=== PATIENT | female | born 2000 | race Caucasian/White ===

== ENCOUNTER 2019-10-06 20:20 | Emergency (ER) | payer OTHER ==
[2019-10-06] MEDS ORDERED: RABIES IMMUNE GLOBULIN INJ/PF 300 UNIT/ML VIAL IM ONE ×2 (20:58→21:06)
[2019-10-06] MEDS ORDERED: DIPH/PERTUSS(ACELL)/TETANUS VAC/PF 0.5 ML SYR (>=10YO) IM ONE (20:58)
[2019-10-06] MEDS ORDERED: RABIES VACCINE (PCEC)/PF 2.5 UNIT/1 ML KIT IM ONE (20:58)
--- NOTE | 2019-10-06 21:07 | ER Document Report ---
HPI - HPI Time Seen by Provider: 10/06/19 20:44 Notes: 19 yr old female presents to ER for evaluation of a stray cat bitting her right lower extremity earlier this afternoon. Pt states she is unsure of her last tetanus. pt is unsure if the cat had rabies. bleeding is controlled. pt is currently on ciprofloxacin for an inner ear infection from her PCP. denies any n/t to ble. no otc meds have librado tried. pt states she has seen the cat multiple times, but the cat has never attacked her before. denies any cp, sob, n/v/d. I have greeted and performed a rapid initial assessment of this patient. A comprehensive ED assessment and evaluation of the patient, analysis of test results and completion of the medical decision making process will be conducted by additional ED providers. PHYSICAL EXAMINATION: GENERAL: Well-appearing, well-nourished and in no acute distress. HEAD: Atraumatic, normocephalic. EYES: Pupils equal round extraocular movements intact, conjunctiva are normal. NECK: Normal range of motion CV: s1, s2 regular LUNGS: No respiratory distress Musculoskeletal: Normal range of motion NEUROLOGICAL: Normal speech, normal gait. SKIN: Warm, Dry, normal turgor, no rashes or lesions noted. multiple abrasions to right lower extremity on anterior aspect. no puncture wounds. bleeding is controlled. Course - Vital Signs Vital signs: Temp Pulse Resp BP Pulse Ox 98.5 F 96 20 127/68 H 100 10/06/19 20:10/06/19 20:29 10/06/19 20:29 10/06/19 20:10/06/19 20:29
--- NOTE | 2019-10-06 21:29 | ER Document Report ---
ED Medical Screen (RME) - General Chief Complaint: Cat Bite Stated Complaint: CAT BITE Time Seen by Provider: 10/06/19 20:44 Notes: 19 yr old female presents to ER for evaluation of a stray cat bitting her right lower extremity earlier this afternoon. Pt states she is unsure of her last tetanus. pt is unsure if the cat had rabies. bleeding is controlled. pt is currently on ciprofloxacin for an inner ear infection from her PCP. denies any n/t to ble. no otc meds have librado tried. pt states she has seen the cat multiple times, but the cat has never attacked her before. denies any cp, sob, n/v/d. I have greeted and performed a rapid initial assessment of this patient. A comprehensive ED assessment and evaluation of the patient, analysis of test results and completion of the medical decision making process will be conducted by additional ED providers. PHYSICAL EXAMINATION: GENERAL: Well-appearing, well-nourished and in no acute distress. HEAD: Atraumatic, normocephalic. EYES: Pupils equal round extraocular movements intact, conjunctiva are normal. NECK: Normal range of motion CV: s1, s2 regular LUNGS: No respiratory distress Musculoskeletal: Normal range of motion NEUROLOGICAL: Normal speech, normal gait. SKIN: Warm, Dry, normal turgor, no rashes or lesions noted. multiple abrasions to right lower extremity on anterior aspect. no puncture wounds. bleeding is controlled. - Related Data Allergies/Adverse Reactions: No Known Allergies Allergy (Unverified 10/06/19 20:53) Past Medical History - Social History Frequency of alcohol use: Occasional Drug Abuse: None Physical Exam - Vital signs Vitals: Temp Pulse Resp BP Pulse Ox 98.5 F 96 20 127/68 H 100 10/06/19 20:10/06/19 20:10/06/19 20:10/06/19 20:10/06/19 20:29 Course - Vital Signs Vital signs: Temp Pulse Resp BP Pulse Ox 98.5 F 96 20 127/68 H 100 10/06/19 20:10/06/19 20:10/06/19 20:10/06/19 20:10/06/19 20:29
--- NOTE | 2019-10-06 22:46 | ER Document Report ---
HPI - HPI Time Seen by Provider: 10/06/19 20:44 Pain Level: Denies - REPRODUCTIVE LMP: 09/28/19 Reproductive: DENIES: : Past Medical History - Social History Smoking Status: Former Smoker Frequency of alcohol use: Occasional Drug Abuse: None Patient has homicidal ideation: No Course - Vital Signs Vital signs: Temp Pulse Resp BP Pulse Ox 98.5 F 96 20 127/68 H 100 10/06/19 20:29 10/06/19 20:29 10/06/19 20:29 10/06/19 20:29 10/06/19 20:29
[2019-10-06] MEDS ORDERED: AMOXICILLIN TR/POT CLAVULANATE 875-125 MG TAB PO ONE (22:52)
[2019-10-06] MEDS ORDERED: ONDANSETRON 4 MG TAB.RAPDIS PO ONE (22:52)
--- NOTE | 2019-10-06 22:55 | ER Document Report ---
ED Animal Bite - General Chief Complaint: Cat Bite Stated Complaint: CAT BITE Time Seen by Provider: 10/06/19 20:44 Mode of Arrival: Ambulatory Information source: Patient Notes: 19-year-old female presented to ED for cat bite to the right lower leg. She states it happened earlier this afternoon. She states she did not know when her last tetanus shot was so that has been ordered. She is also been ordered the rabies vaccination because she does not know who the vaccination status of the cat. States she has seen the cat multiple times but is never attacked her before. She is alert oriented respirations regular nonlabored speaking in full sentences. - HPI Location of injury: RLE Severity of injury: Bitten Onset: This afternoon Quality of pain: Sharp Pain Level: 1 Context of attack: "Unprovoked" attack Type of animal: Cat Animal's immunizations: Unknown Animal captured or known: No Animal control notified: No Animal control form completed: Yes - Related Data Allergies/Adverse Reactions: No Known Allergies Allergy (Unverified 10/06/19 20:53) Past Medical History - General Information source: Patient - Social History Smoking Status: Former Smoker Frequency of alcohol use: Occasional Drug Abuse: None Lives with: Family Family History: Reviewed & Not Pertinent Patient has homicidal ideation: No - Past Medical History Cardiac Medical History: Reports: None Pulmonary Medical History: Reports: None EENT Medical History: Reports: None Neurological Medical History: Reports: None Endocrine Medical History: Reports: None Renal/ Medical History: Reports: None Malignancy Medical History: Reports: None GI Medical History: Reports: None Musculoskeletal Medical History: Reports None Skin Medical History: Reports None Psychiatric Medical History: Reports: None Traumatic Medical History: Reports: None Infectious Medical History: Reports: None Surgical Hx: Negative Past Surgical History: Reports: None - Immunizations Hx Diphtheria, Pertussis, Tetanus Vaccination: Yes - 10/06/2019 Review of Systems - Review of Systems Constitutional: No symptoms reported EENT: No symptoms reported Cardiovascular: No symptoms reported Respiratory: No symptoms reported Gastrointestinal: No symptoms reported Genitourinary: No symptoms reported Female Genitourinary: No symptoms reported Musculoskeletal: No symptoms reported Skin: Other - Superficial scratches to the right lower leg from a cat's teeth according to the patient Hematologic/Lymphatic: No symptoms reported Neurological/Psychological: No symptoms reported Physical Exam - Vital signs Vitals: Temp Pulse Resp BP Pulse Ox 98.5 F 96 20 127/68 H 100 10/06/19 20:29 10/06/19 20:29 10/06/19 20:29 10/06/19 20:29 10/06/19 20:29 Interpretation: Normal - General General appearance: Appears well, Alert - HEENT Head: Normocephalic, Atraumatic Eyes: Normal Pupils: PERRL - Respiratory Respiratory status: No respiratory distress Chest status: Nontender Breath sounds: Normal Chest palpation: Normal - Cardiovascular Rhythm: Regular Heart sounds: Normal auscultation Murmur: No - Abdominal Inspection: Normal Distension: No distension Bowel sounds: Normal Tenderness: Nontender Organomegaly: No organomegaly - Back Back: Normal, Nontender - Extremities General upper extremity: Normal inspection, Nontender, Normal color, Normal ROM, Normal temperature General lower extremity: Normal inspection, Nontender, Normal color, Normal ROM, Normal temperature, Normal weight bearing. No: Chito's sign - Neurological Neuro grossly intact: Yes Cognition: Normal Orientation: AAOx4 Mak Coma Scale Eye Opening: Spontaneous Mak Coma Scale Verbal: Oriented [place] Coma Scale Motor: Obeys Commands Mak Coma Scale Total: 15 Speech: Normal Motor strength normal: LUE, RUE, LLE, RLE Sensory: Normal - Psychological Associated symptoms: Normal affect, Normal mood - Skin Skin Temperature: Warm Skin Moisture: Dry Skin Color: Normal Skin irregularity: Laceration - Multiple superficial lacerations to the right lower leg from a cat's teeth according to the patient Location of irregularity: Extremities - Right lower leg Course - Re-evaluation Re-evalutation: 10/06/19 23:01 Wound was cleaned with Shur-Clens and saline. Patient was given rabies vaccination as she does not know the immunization shot record of the cat and is unable to capture the cat. She states she would prefer to go ahead and get the immunization. She states she also had does not know when her last tetanus shot was. So she has been given tetanus immunization. She is also been treated with Augmentin to prevent infection from a cat bite and Zofran because of the antibiotics. Patient has verbalized that she understands she needs to return to the emergency room for immunizations on the days 3 7 and 14. She has been given a sheet with the dates appropriate for her to return. - Vital Signs Vital signs: Temp Pulse Resp BP Pulse Ox 98.6 F 86 20 122/52 L 100 10/06/19 23:46 10/06/19 23:46 10/06/19 20:29 10/06/19 23:46 10/06/19 23:46 Discharge - Discharge Clinical Impression: Cat bite of right lower leg Qualifiers: Encounter type: initial encounter Qualified Code(s): S81.851A - Open bite, right lower leg, initial encounter Condition: Stable Disposition: HOME, SELF-CARE Additional Instructions: Animal Bites Animal bites are often heavily contaminated with bacteria. In spite of thorough cleansing and proper treatment, these wounds frequently become infected. Bite wounds of the hands are especially prone to complications. Bites are dressed, if possible. Large wounds may require suturing after internal cleansing. Because of infection risk, some large wounds must remain unstitched. Your doctor is trained to advise you on the best treatment for your bite. Call the doctor at once if the wound becomes red, swollen, warm, increasingly painful, or if it begins to drain. Danger signs also include red streaks up the involved extremity, swollen glands in the groin or under the arm, or fever and chills. The risk of rabies from domestic animals is very low. Bats, sick animals, and wild animals may expose you to rabies. The physician, or the health department, will inform you if you will need to receive the rabies vaccine. Soap Cleansing Gently wash the wound daily using a mild soap (like Ivory, Phisoderm, Neutrogena). Use warm water, rubbing gently until all debris, ooze, and crusting have been washed from the wound. Allow to dry briefly (about 10 minutes) after cleaning. Repeat this cleansing at least three times a day for the first two days and then once or twice a day. Antibiotic Ointment Protection Your wounds are such that dressing them is not practical or optional. After cleansing, you should apply a thin coating of antibiotic ointment (Bacitracin, not Neosporin) to the wounds at least three times daily. This lessens infection risk, and may decrease the amount of scarring. Use a q-tip or dull butter knife, not your finger, to apply this ointment. Any debris or ooze which builds up in the ointment should be gently rubbed off with a sterile gauze pad. Harder crusting may need to be gently scrubbed off with a clean wash cloth with soap and warm water, perhaps applying a warm, wet wash cloth to the wound for ten minutes first. Development of redness, severe itching, or blistering may mean allergy to the ointment. See the doctor. Augmentin Augmentin is a mixture of amoxicillin and clavulanate. Amoxicillin is a member of the penicillin family. It covers the germs likely to cause ear, bronchial, and urinary infections better than plain penicillin. The addition of clavulanate allows it to cover staph infections of the skin, as well as resistant cases of ear and sinus infections. Your physician has chosen Augmentin for you because of the special nature of your situation. Augmentin is best taken with meals. Nausea after taking the medication is rare, but can occur. Diarrhea can occur, particularly in small children. Vaginal yeast infections, and oral thrush in infants are also common. Contact your physician if these problems occur. Allergy to penicillins is common. If you have had an allergic reaction to any drug of the penicillin family, you should never take any other penicillin. Notify your doctor at once if you develop hives, shortness of breath, swelling, or faintness. Rabies Prophyllaxis Rabies immunization can prevent infection with the rabies virus. This virus is always fatal if it reaches the nervous system. Exposure to an infected animal's saliva requires a series of shots. If you're already immunized, you may need only a booster shot. It's critical for you to follow the exact schedule of immunizations. After the first shot, we give repeat doses in 3 days, 7 days, 14 days, and 28 days. The repeat doses can also be given through the Health Department or by special arrangement with your doctor. Ibuprofen or acetaminophen can be used for aching and swelling at the injection site. Call the doctor or return if you develop increasing pain, fever, chills, or spreading redness, or if you become short of breath or faint. Tetanus Immunization Given You have been given an immunization against tetanus. Please record this in your records. In general, a booster is needed only once every 10 years. The tetanus shot protects against tetanus or "lockjaw," which is a complication of certain wound infections (the tetanus shot cannot protect against the actual infection). The immunization site may become warm and red due to local reaction. If this occurs, apply warm compresses and take aspirin or ibuprofen to reduce inflammation and discomfort. Return for evaluation if the reaction becomes severe. Antinausea Medication You have been given a medication to suppress nausea and vomiting. This type of medication can be given as a shot, pill, or suppository. It will usually last for many hours. Pills and shots usually last six to eight hours, suppositories last about 12 hours. For the typical illness, only one or two doses of the medication may be necessary. Mild lightheadedness may occur. This type of medicine can cause drowsiness. Do not drive or operate dangerous machinery while under its influence. Do not mix with alcohol. See your doctor at once if you have muscle spasms or tightness, or uncontrollable motions (particularly of the neck, mouth, or jaw). Persistent vomiting or severe lightheadedness should also be evaluated by the physician. FOLLOW-UP CARE: If you have been referred to a physician for follow-up care, call the physicians office for an appointment as you were instructed or within the next two days. If you experience worsening or a significant change in your symptoms, notify the physician immediately or return to the Emergency Department at any time for re-evaluation. Return to the ED to get sure of rabies vaccination as per schedule of the taper you were given at discharge. Prescriptions: Amoxicillin/Potassium Clav [Augmentin 875-125 Tablet] 1 tab PO BID #20 tab Forms: Elevated Blood Pressure
[2019-10-06 23:48] VITALS: BP 122/52
[2019-10-07] MEDS ORDERED: RABIES VACCINE (PCEC)/PF 2.5 UNIT/1 ML KIT IM ONE (00:15)
== END 2019-10-06 23:48 | disposition home or self-care (01) ==
LOC: ER 20:20
DX: S81.851A Open bite, right lower leg, initial encounter (principal); W55.01XA Bitten by cat, initial encounter; Z20.3 Contact with and (suspected) exposure to rabies; Z23 Encounter for immunization
CPT/HCPCS: 99283; 96372; 90471 ×2; 90715; 90675; 90375; S0119; J3490